=== PATIENT | male | born 1945 | race American Indian/Alaskan Native ===

== ENCOUNTER 2016-07-30 17:13 | Emergency (ER) | payer MEDICARE ==
[2016-07-30] MEDS ORDERED: MOTRIN PO ONE (18:41)
--- NOTE | 2016-07-30 20:50 | Cat Scan Report ---
FINAL REPORT PROCEDURE: CT CERVICAL SPINE WO CON TECHNIQUE: Computerized tomography of the cervical spine was performed from the skull base to T1 without contrast material. HISTORY: cervical spinal tenderness COMPARISON: No prior studies are available for comparison. FINDINGS: C1-2: There is narrowing of the atlantoaxial joint.. C2-3: Mild degree broad-based disc osteophyte complex is noted without significant spinal canal compromise. There is moderate degree of bilateral neural foraminal stenosis secondary to uncovertebral degenerative changes. There is evidence of posterior laminectomy from C3 to C6. C3-4: Moderate degree broad-based disc osteophyte complex is noted. 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 To uncovertebral degen. changes. C4-5: Moderate degree broad-based disc osteophyte complex is noted. 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 to uncovertebral degen. changes. C5-6: Mild degree right neural foraminal stenosis is noted secondary to uncovertebral degenerative changes. C6-7: No significant abnormality. C7-T1: Moderate degree bilateral neural foraminal stenosis is noted secondary to uncovertebral degenerative changes. Other: Atherosclerotic calcification is noted involving bilateral carotid bifurcations. IMPRESSION: There is evidence of laminectomy from C3-C6. Multilevel cervical spondylosis noted as described above. Atherosclerotic calcification of bilateral carotid bifurcations. Doppler evaluation is recommended..
[2016-07-30 21:19] VITALS: BP 162/92
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
== END 2016-07-30 21:19 | disposition home or self-care (01) ==
LOC: ED 17:13
DX: M54.12 Radiculopathy, cervical region (principal); I10 Essential (primary) hypertension; M19.90 Unspecified osteoarthritis, unspecified site; F17.200 Nicotine dependence, unspecified, uncomplicated; Z79.82 Long term (current) use of aspirin; Z88.8 Allergy status to other drugs, medicaments and biological substances
CPT/HCPCS: 72125

== ENCOUNTER 2017-01-17 17:26 | Emergency (ER) | payer MEDICARE ==
[2017-01-17 17:33] VITALS: BP 140/88
[2017-01-17 18:14] LABS: Basophils % (Auto) 0.8 % (0.0-1.8); Eosinophils % (Auto) 2.9 % (0.0-4.3); Hematocrit 49.3 % (35.5-45.6); Hemoglobin 16.3 gm/dl (11.8-15.2); Mean Corpuscular HGB Conc 33 % (32-34); Mean Corpuscular Hemoglobin 28 pg (28-32); Mean Corpuscular Volume 86 fl (84-94); Platelet Count 181 K/mm3 (140-440); Red Blood Count 5.76 M/mm3 (3.65-5.03); Red Cell Distribution Width 13.4 % (13.2-15.2); White Blood Count 6.8 K/mm3 (4.5-11.0)
[2017-01-17 18:24] LABS: BUN/Creatinine Ratio 13; Blood Urea Nitrogen 14 mg/dL (9-20); Calcium 8.8 mg/dL (8.4-10.2); Carbon Dioxide 23 mmol/L (22-30); Chloride 100.7 mmol/L (98-107); Glucose 108 mg/dL (75-100); Sodium 140 mmol/L (137-145)
[2017-01-17 18:43] LABS: Anion Gap 21 mmol/L
[2017-01-17 18:44] LABS: Potassium 4.3 mmol/L (3.6-5.0)
--- NOTE | 2017-01-17 20:31 | XRay Report ---
FINAL REPORT EXAM: XR CHEST ROUTINE 2V HISTORY: shortness of breath TECHNIQUE: PA and lateral views of the chest PRIORS: None. FINDINGS: Lines, tubes, and devices: N/A Lungs and pleura: Trachea is normal in position. Lungs are clear of infiltrate, pleural effusion, vascular congestion, or pneumothorax. Cardiomediastinal silhouette: Cardiac and mediastinal silhouettes are unremarkable. Other: Bony structures are intact. IMPRESSION: No acute cardiopulmonary process seen.
== END 2017-01-17 22:00 | disposition left against medical advice (07) ==
LOC: ED 17:26
DX: R05 Cough (principal); Z53.21 Procedure and treatment not carried out due to patient leaving prior to being seen by health care provider
CPT/HCPCS: 36415; 71020; 80048; 85025; 87040; 93005; 93010

== ENCOUNTER 2017-08-29 10:24 | Emergency (ER) | payer SELFPAY ==
[2017-08-29 10:52] VITALS: BP 160/88
[2017-08-29 11:29] LABS: Basophils % (Auto) 0.4 % (0.0-1.8); Eosinophils # (Auto) 0.2 K/mm3 (0.0-0.4); Eosinophils % (Auto) 3.7 % (0.0-4.3); Hemoglobin 16.6 gm/dl (11.8-15.2); Lymphocytes # (Auto) 2.8 K/mm3 (1.2-5.4); Lymphocytes % (Auto) 44.9 % (13.4-35.0); Mean Corpuscular HGB Conc 35 % (32-34); Mean Corpuscular Hemoglobin 29 pg (28-32); Mean Corpuscular Volume 84 fl (84-94); Monocytes # (Auto) 0.5 K/mm3 (0.0-0.8); Monocytes % (Auto) 7.2 % (0.0-7.3); Platelet Count 165 K/mm3 (140-440); Red Blood Count 5.68 M/mm3 (3.65-5.03); Red Cell Distribution Width 13.6 % (13.2-15.2)
[2017-08-29 11:49] LABS: BUN/Creatinine Ratio 17; Blood Urea Nitrogen 12 mg/dL (9-20); Calcium 9.4 mg/dL (8.4-10.2); Hemolysis Index 11
== END 2017-08-29 10:55 | disposition left against medical advice (07) ==
LOC: ED 10:24
DX: M25.551 Pain in right hip (principal); Z53.21 Procedure and treatment not carried out due to patient leaving prior to being seen by health care provider
CPT/HCPCS: 36415; 80048; 84484; 85025; 93005; 93010

== ENCOUNTER 2017-09-17 20:32 | Emergency (ER) | payer SELFPAY | END 2017-09-17 20:33 | disposition left against medical advice (07) | LOC: ED 20:32 | DX: Z53.21 Procedure and treatment not carried out due to patient leaving prior to being seen by health care provider (principal) ==

== ENCOUNTER 2020-03-11 00:58 | Observation (INO) | payer OTHER ==
[2020-03-11] MEDS ORDERED: ASPIRIN 325 MG TAB PO ONE (01:04)
[2020-03-11 01:31] LABS: Basophils % (Auto) 0.6 % (0.0-1.8); Eosinophils # (Auto) 0.2 K/mm3 (0.0-0.4); Eosinophils % (Auto) 3.1 % (0.0-4.3); Hematocrit 45.5 % (35.5-45.6); Hemoglobin 15.6 gm/dl (11.8-15.2); Lymphocytes # (Auto) 3.1 K/mm3 (1.2-5.4); Lymphocytes % (Auto) 44.9 % (13.4-35.0); Mean Corpuscular HGB Conc 34 % (32-34); Mean Corpuscular Volume 85 fl (84-94); Monocytes # (Auto) 0.6 K/mm3 (0.0-0.8); Monocytes % (Auto) 8.5 % (0.0-7.3); Platelet Count 169 K/mm3 (140-440); Red Blood Count 5.35 M/mm3 (3.65-5.03); Red Cell Distribution Width 13.5 % (13.2-15.2)
[2020-03-11 01:51] LABS: BUN/Creatinine Ratio 10; Blood Urea Nitrogen 9 mg/dL (9-20); Calcium 9.5 mg/dL (8.4-10.2); Hemolysis Index 13
--- NOTE | 2020-03-11 02:03 | XRay Report ---
CHEST 1 VIEW 03/11/2020 1:29 AM INDICATION / CLINICAL INFORMATION: Chest Pain. COMPARISON: 01/17/2017 FINDINGS: SUPPORT DEVICES: None. HEART / MEDIASTINUM: No significant abnormality. LUNGS / PLEURA: No significant pulmonary or pleural abnormality. No pneumothorax. ADDITIONAL FINDINGS: No significant additional findings. IMPRESSION: 1. No acute findings. Signer Name: Rayshawn Paul MD Signed: 03/11/2020 1:59 AM Workstation Name: [id number]
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
[2020-03-11] MEDS ORDERED: ACETAMINOPHEN 325 MG TAB PO PRN (02:41)
[2020-03-11] MEDS ORDERED: NITROGLYCERIN 0.4 MG TAB SUBL SL PRN (02:41)
--- NOTE | 2020-03-11 02:49 | History and Physical Report ---
History of Present Illness Date of examination: 03/11/20 Chief complaint: Chest pain hypertension History of present illness: 74-year-old male with history of hypertension was brought to the emergency room because of syncope, chest pain, elevated blood pressure. Patient complained of chest pain which is 2/10 substernal and left-sided chest pain starting 1 hour prior to the arrival 1 hour prior to arrival .Patient states that his chest pain is better with rest and worse with exertion. Patient states his blood pressure been up for 3 days. Patient states his blood pressure has been elevated even though he is taking his blood pressure medication. Patient denies shortness of breath. Patient states his syncopal episode was brief. Patient states it was witnessed by his family. Patient states his average blood pressure at home has been 240/130. Patient denies fever and chills. Patient denies cough. Initial cardiac enzyme in the emergency room is negative. Past History Past Medical History: hypertension. denies: hyperthyroidism Medications and Allergies Allergies Allergy/AdvReac Type Severity Reaction Status Date / Time lisinopril AdvReac Unknown Verified 01/17/17 17:30 Home Medications Medication Instructions Recorded Confirmed Last Taken Type Aspirin [Adult Low Dose Aspirin EC] 81 mg PO DAILY #30 tablet. 11/19/14 Unknown Rx Atenolol [Tenormin] 100 mg PO QDAY #30 tablet 11/19/14 Unknown Rx Gabapentin 100 mg PO Q8HR #30 capsule 11/19/14 Unknown Rx HYDROcodone/APAP 10-325 [[place] 1 tab PO Q6H PRN #10 tablet 11/19/14 Unknown Rx 10-325 mg TAB] Warfarin [Coumadin] 7.5 mg PO DAILY@1700 #30 tablet 11/19/14 Unknown Rx HYDROcodone/APAP 5-325 [[place] 1 - 2 each PO Q6HR PRN #20 tablet 05/30/15 Unknown Rx 5/325] oxyCODONE /ACETAMINOPHEN [Percocet 1 tab PO Q6HR PRN #4 tablet 09/07/15 Unknown Rx 5/325] HYDROcodone/APAP 5-325 [[place] 1 each PO Q6HR PRN #15 tablet 01/29/16 Unknown Rx 5/325] Acetaminophen [Acetaminophen TAB] 650 mg PO Q6HR PRN #15 tablet 07/30/16 Unknown Rx Review of Systems Cardiovascular: chest pain, syncope Exam - Constitutional Vitals: Temp Pulse Resp BP Pulse Ox 98.3 F 65 16 183/103 99 03/11/20 01:10 03/11/20 02:27 03/11/20 02:27 03/11/20 02:27 03/11/20 02:27 General appearance: Present: no acute distress, well-nourished - EENT Eyes: Present: PERRL ENT: hearing intact, clear oral mucosa - Neck Neck: Present: supple, normal ROM - Respiratory Respiratory effort: normal Respiratory: bilateral: diminished - Cardiovascular Heart Sounds: Present: S1 & S2. Absent: rub, click - Extremities Extremities: pulses symmetrical, No edema Peripheral Pulses: within normal limits - Abdominal General gastrointestinal: Present: soft, non-tender, non-distended, normal bowel sounds Male genitourinary: Present: normal - Integumentary Integumentary: Present: clear, warm, dry - Musculoskeletal Musculoskeletal: gait normal, strength equal bilaterally - Psychiatric Psychiatric: appropriate mood/affect, intact judgment & insight - Neurologic Neurologic: CNII-XII intact, moves all extremities HEART Score - HEART Score EKG: Non-specific Age: > 65 Risk factors: 1-2 risk factors Troponin: Troponin T < 0.010 ng/mL (0.00-0.029) 03/11/20 01:09 Troponin: < normal limit Results - Labs CBC & Chem 7: 03/11/20 01:09 03/11/20 01:09 Labs: Laboratory Last Values WBC 6.9 K/mm3 (4.5-11.0) 03/11/20 01:09 RBC 5.35 M/mm3 (3.65-5.03) H 03/11/20 01:09 Hgb 15.6 gm/dl (11.8-15.2) H 03/11/20 01:09 Hct 45.5 % (35.5-45.6) 03/11/20 01:09 MCV 85 fl (84-94) 03/11/20 01:09 MCH 29 pg (28-32) 03/11/20 01:09 MCHC 34 % (32-34) 03/11/20 01:09 RDW 13.5 % (13.2-15.2) 03/11/20 01:09 Plt Count 169 K/mm3 (140-440) 03/11/20 01:09 Lymph % (Auto) 44.9 % (13.4-35.0) H 03/11/20 01:09 [place] % (Auto) 8.5 % (0.0-7.3) H 03/11/20 01:09 Eos % (Auto) 3.1 % (0.0-4.3) 03/11/20 01:09 Baso % (Auto) 0.6 % (0.0-1.8) 03/11/20 01:09 Lymph # (Auto) 3.1 K/mm3 (1.2-5.4) 03/11/20 01:09 [place] # (Auto) 0.6 K/mm3 (0.0-0.8) 03/11/20 01:09 Eos # (Auto) 0.2 K/mm3 (0.0-0.4) 03/11/20 01:09 Baso # (Auto) 0.0 K/mm3 (0.0-0.1) 03/11/20 01:09 Seg Neutrophils % 42.9 % (40.0-70.0) 03/11/20 01:09 Seg Neutrophils # 2.9 K/mm3 (1.8-7.7) 03/11/20 01:09 Sodium 139 mmol/L (137-145) 03/11/20 01:09 Potassium 3.8 mmol/L (3.6-5.0) 03/11/20 01:09 Chloride 102.4 mmol/L (98-107) 03/11/20 01:09 Carbon Dioxide 27 mmol/L (22-30) 03/11/20 01:09 Anion Gap 13 mmol/L 03/11/20 01:09 BUN 9 mg/dL (9-20) 03/11/20 01:09 Creatinine 0.9 mg/dL (0.8-1.3) 03/11/20 01:09 Estimated GFR > 60 ml/min 03/11/20 01:09 BUN/Creatinine Ratio 10 % 03/11/20 01:09 Glucose 92 mg/dL (75-100) 03/11/20 01:09 Calcium 9.5 mg/dL (8.4-10.2) 03/11/20 01:09 Troponin T < 0.010 ng/mL (0.00-0.029) 03/11/20 01:09 - Imaging and Cardiology Chest x-ray: image reviewed Lloyd/IV: IV Catheter Type [Right Hand] INT / [place] Lock Assessment and Plan - Patient Problems (1) Chest pain Current Visit: Yes Status: Acute Qualifiers: Chest pain type: unspecified Qualified Code(s): R07.9 - Chest pain, unspecified Plan to address problem: Admit the patient to the medical telemetry. Put the patient on chest pain pathway. Aspirin 325 mg p.o. daily. Lipitor 40 mg p.o. daily. Nitroglycerin as needed. We do the serial cardiac enzyme. We also do a Lexiscan. Consult cardiology if needed. Will recheck CBC BMP and lipid profile. Patient is on Coumadin for DVT prophylaxis and Protonix 40 mg p.o. daily for GI prophylaxis (2) Hypertensive urgency Current Visit: Yes Status: Acute Plan to address problem: We continue the home medication. Patient is on atenolol 100 mg p.o. daily. We will put the patient on hydralazine 10 mg IV every 6 hours as needed. We monitor the blood pressure closely. If needed will add more medication
[2020-03-11] MEDS ORDERED: hydrALAZINE 20 MG/1 ML INJ IV PRN (02:50)
[2020-03-11 05:13] LABS: Basophils % (Auto) 0.5 % (0.0-1.8); Eosinophils # (Auto) 0.2 K/mm3 (0.0-0.4); Eosinophils % (Auto) 3.2 % (0.0-4.3); Hematocrit 44.9 % (35.5-45.6); Hemoglobin 15.1 gm/dl (11.8-15.2); Lymphocytes # (Auto) 2.9 K/mm3 (1.2-5.4); Lymphocytes % (Auto) 43.9 % (13.4-35.0); Mean Corpuscular HGB Conc 34 % (32-34); Mean Corpuscular Volume 87 fl (84-94); Monocytes # (Auto) 0.4 K/mm3 (0.0-0.8); Monocytes % (Auto) 6.3 % (0.0-7.3); Platelet Count 156 K/mm3 (140-440); Red Blood Count 5.19 M/mm3 (3.65-5.03); Red Cell Distribution Width 13.6 % (13.2-15.2)
[2020-03-11 05:26] LABS: BUN/Creatinine Ratio 11; Blood Urea Nitrogen 9 mg/dL (9-20); Calcium 9.1 mg/dL (8.4-10.2); Hemolysis Index 6
[2020-03-11] MEDS ORDERED: REGADENOSON 0.4 MG/5 ML INJ IV ONE (08:40)
[2020-03-11] MEDS ORDERED: NON-FORMULARY EACH (Atenolol [Tenormin] 100 MG Tablet) PO SCH (10:00)
[2020-03-11] MEDS: GABAPENTIN 100 MG CAP PO SCH ×2 (10:00→16:48)
[2020-03-11] MEDS ORDERED: atenoloL 50 MG TAB PO SCH (10:00)
[2020-03-11] MEDS ORDERED: PANTOPRAZOLE 40 MG TAB PO SCH (10:00)
--- NOTE | 2020-03-11 11:31 | Treadmill Report ---
NUCLEAR PERFUSION SCAN REFERRING PHYSICIAN: Hospitalist service. PROTOCOL: The patient was assessed in postoperative state, given 10 mCi of technetium 99m at rest. The patient underwent rest imaging. The patient underwent Lexiscan stress test per standard protocol. At peak stress, the patient was given 26 mCi school laboratory technician 99m. Shortly thereafter, the patient underwent stress imaging. Raw imaging reveals mild GI artifact. No significant motion artifact. SPECT imaging examined carefully in horizontal long axis, vertical long axis, short axis views. There is normal mitral uptake of radioisotope in all reported segments. No evidence of significant fixed or reversible perfusion defect suggestive of prior infarction or ischemia. Gated wall motion reveals normal systolic thickening, calculated ejection fraction of 74%. No TID. CONCLUSIONS: 1. Normal myocardial perfusion scan without evidence of active ischemia or prior infarction. 2. Normal left ventricular systolic performance without evidence of transient ischemic dilatation or stress-induced segmental wall motion. JOB# [id number] SBM/NTS
[2020-03-11 14:34] LABS: INR 0.99 (0.87-1.13)
[2020-03-11 15:35] VITALS: BP 104/72
--- NOTE | 2020-03-11 16:31 | Discharge Summary ---
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 care physician: LEAN MANAGER Hospitalization Condition: Critical Hospital course: Admitted for Chest pain in obs status Doing well (1) Chest pain Current Visit: Yes Status: Acute Qualifiers: Chest pain type: unspecified Qualified Code(s): R07.9 - Chest pain, unspecified Plan to address problem: Cardiac enzymes negative and Lexiscan normal (2) Hypertensive urgency Current Visit: Yes Status: Acute Plan to address problem: Normal Disposition: - TO HOME OR SELFCARE - Discharge Diagnoses (1) Chest pain Status: Acute Qualifiers: Chest pain type: unspecified Qualified Code(s): R07.9 - Chest pain, unspecified (2) Hypertensive urgency Status: Acute Core Measure Documentation - Palliative Care Palliative Care/ Comfort Measures: Not Applicable - Core Measures Any of the following diagnoses?: none Exam - Constitutional Vitals: Temp Pulse Resp BP Pulse Ox 98.3 F 78 18 104/72 100 03/11/20 01:10 03/11/20 15:34 03/11/20 15:34 03/11/20 15:34 03/11/20 15:34 General appearance: Present: no acute distress, well-nourished - EENT Eyes: Present: PERRL ENT: hearing intact, clear oral mucosa - Neck Neck: Present: supple, normal ROM - Respiratory Respiratory effort: normal Respiratory: bilateral: CTA - Cardiovascular Heart rate: 76 Rhythm: regular Heart Sounds: Present: S1 & S2. Absent: rub, click - Extremities Extremities: pulses symmetrical, No edema Peripheral Pulses: within normal limits - Abdominal General gastrointestinal: Present: soft, non-tender, non-distended, normal bowel sounds Male genitourinary: Present: normal - Integumentary Integumentary: Present: clear, warm, dry - Musculoskeletal Musculoskeletal: gait normal, strength equal bilaterally - Psychiatric Psychiatric: appropriate mood/affect, intact judgment & insight - Neurologic Neurologic: CNII-XII intact, moves all extremities Plan Activity: no restrictions Diet: low cholesterol, low salt Follow up with: PRIMARY CARE, [Primary Care Provider] - 7 Days Forms: Warfarin Discharge Instruction
[2020-03-11] MEDS ORDERED: WARFARIN 7.5 MG TAB PO SCH (17:00)
[2020-03-12] MEDS ORDERED: ASPIRIN EC 325 MG TAB PO SCH (10:00)
== END 2020-03-11 17:00 | disposition home or self-care (01) ==
LOC: ED 00:58 → 4A 02:34
PROVIDERS: ADMIT Hospitalist; ATTEND Internal Medicine
DX: I16.0 Hypertensive urgency (principal); R07.89 Other chest pain; M19.90 Unspecified osteoarthritis, unspecified site; F17.210 Nicotine dependence, cigarettes, uncomplicated; Z79.82 Long term (current) use of aspirin; Z79.01 Long term (current) use of anticoagulants; Z98.890 Other specified postprocedural states
CPT/HCPCS: 36415; 71045; 78452; 80048; 84484; 85025; 85610; 93005; 93017; 96374; 99291; A9502; G0378; J0360; J2785

== ENCOUNTER 2020-07-17 01:35 | Emergency (ER) | payer OTHER ==
[2020-07-17] MEDS ORDERED: ASPIRIN 325 MG TAB PO ONE (01:52)
--- NOTE | 2020-07-17 02:32 | XRay Report ---
CHEST 2 VIEW INDICATION / CLINICAL INFORMATION: chest pain. COMPARISON: 03/11/2020 FINDINGS: SUPPORT DEVICES: None. HEART / MEDIASTINUM: No significant abnormality. LUNGS / PLEURA: No significant pulmonary or pleural abnormality. No pneumothorax. ADDITIONAL FINDINGS: No significant additional findings. IMPRESSION: 1. No acute findings. No interval change. Signer Name: Shabana Baker MD Signed: 07/17/2020 2:28 AM Workstation Name: [id number]
[2020-07-17 03:13] LABS: Basophils # (Auto) 0.1 K/mm3 (0.0-0.1); Basophils % (Auto) 0.7 % (0.0-1.8); Eosinophils # (Auto) 0.2 K/mm3 (0.0-0.4); Eosinophils % (Auto) 3.2 % (0.0-4.3); Hematocrit 44.3 % (35.5-45.6); Lymphocytes # (Auto) 2.6 K/mm3 (1.2-5.4); Lymphocytes % (Auto) 35.4 % (13.4-35.0); Mean Corpuscular HGB Conc 34 % (32-34); Mean Corpuscular Volume 87 fl (84-94); Monocytes # (Auto) 0.5 K/mm3 (0.0-0.8); Monocytes % (Auto) 7.4 % (0.0-7.3); Platelet Count 166 K/mm3 (140-440); Red Blood Count 5.08 M/mm3 (3.65-5.03)
[2020-07-17 03:19] VITALS: BP 164/92
[2020-07-17 03:25] LABS: Alanine Aminotransferase 43 units/L (7-56); Albumin 3.8 g/dL (3.9-5); BUN/Creatinine Ratio 15; Blood Urea Nitrogen 12 mg/dL (9-20); Calcium 9.1 mg/dL (8.4-10.2); Hemolysis Index 10
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
--- NOTE | 2020-07-18 10:38 | Electrocardiograph Report ---
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
== END 2020-07-17 04:08 | disposition home or self-care (01) ==
LOC: ED 01:35
DX: J06.9 Acute upper respiratory infection, unspecified (principal); I10 Essential (primary) hypertension; M19.90 Unspecified osteoarthritis, unspecified site; F17.200 Nicotine dependence, unspecified, uncomplicated; Z98.890 Other specified postprocedural states; Z79.899 Other long term (current) drug therapy
CPT/HCPCS: 36415; 71046; 80053; 84484; 85025; 93005; 99283

== ENCOUNTER 2021-10-31 09:17 | Emergency (ER) | payer OTHER ==
[2021-10-31 09:48] VITALS: BP 131/71
[2021-10-31] MEDS ORDERED: ACETAMINOPHEN 500 MG TAB PO ONE (11:58)
--- NOTE | 2021-10-31 12:20 | XRay Report ---
CHEST 2 VIEWS INDICATION / CLINICAL INFORMATION: SOB. COMPARISON: 07/17/2020 FINDINGS: SUPPORT DEVICES: None. HEART / MEDIASTINUM: No significant abnormality. LUNGS / PLEURA: No significant pulmonary or pleural abnormality. No pneumothorax. ADDITIONAL FINDINGS: No significant additional findings. IMPRESSION: 1. No acute findings. Signer Name: Joseph Cui Jr, MD Signed: 10/31/2021 12:16 PM Workstation Name: [id number]
[2021-10-31 13:20] LABS: Hematocrit 46.3 % (35.5-45.6); Mean Corpuscular HGB Conc 32 % (32-34); Mean Corpuscular Volume 88 fl (84-94); Platelet Count 121 K/mm3 (140-440); Red Blood Count 5.27 M/mm3 (3.65-5.03); Red Cell Distribution Width 13.6 % (13.2-15.2)
[2021-10-31 13:49] LABS: Alanine Aminotransferase 36 units/L (7-56); Albumin 4.1 g/dL (3.9-5); BUN/Creatinine Ratio 14; Blood Urea Nitrogen 14 mg/dL (9-20); Hemolysis Index 4
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
--- NOTE | 2021-11-01 09:31 | Electrocardiograph Report ---
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
== END 2021-10-31 15:46 | disposition home or self-care (01) ==
LOC: ED 09:17
DX: J06.9 Acute upper respiratory infection, unspecified (principal); F17.200 Nicotine dependence, unspecified, uncomplicated; I10 Essential (primary) hypertension
CPT/HCPCS: 36415; 71046; 80053; 84484; 85027; 93005; 99284